=== PATIENT | male | born 1990 | race Two or more races ===

== ENCOUNTER 2016-11-18 09:23 | Emergency (ER) | payer SELFPAY ==
[2016-11-18 09:39] VITALS: BP 123/73; PULSE 80; TEMP 98.5; BMI 41.6
--- NOTE | 2016-11-18 10:21 | PDOC ---
History of Present Illness - General Chief Complaint: Injury Stated Complaint: LEFT RING FINGER LACERATION Time Seen by Provider: 11/18/16 09:35 History Source: Patient Exam Limitations: No Limitations - History of Present Illness Initial Comments: 11/18/16 10:15 26-year-old right hand dominant male with past medical history of asthma, up-to- date on tetanus approximately 2 years ago, presents with laceration along the dorsal side overlying the fourth middle phalanx of the digit. The patient states that he was walking when he caught his finger in a fence and cut him. This occurred prior to his arrival. Denies numbness or weakness. Came into the ED for evaluation. Past History - Past Medical History Allergies/Adverse Reactions: Allergies Allergy/AdvReac Type Severity Reaction Status Date / Time No Known Allergies Allergy Verified 01/28/16 07:39 Home Medications: Ambulatory Orders Albuterol Sulfate Inhaler - [Ventolin HFA Inhaler -] 2 inh PO Q4H PRN #1 inh Asthma: Yes - Immunization History TDAP Vaccination: Yes - Psycho/Social/Smoking Cessation Hx Anxiety: No Suicidal Ideation: No Smoking History: Never smoked Hx Alcohol Use: No Drug/Substance Use Hx: No Substance Use Type: None Review of Systems - Review of Systems Able to Perform ROS?: Yes Comments:: 11/18/16 10:16 GENERAL/CONSTITUTIONAL: No fever, weakness. HEAD, EYES, EARS, NOSE AND THROAT: No change in vision. No ear pain or discharge. No sore throat. CARDIOVASCULAR: No chest pain or shortness of breath. RESPIRATORY: No cough, wheezing, or hemoptysis. GASTROINTESTINAL: No abdominal pain, nausea, vomiting, diarrhea, or decreased PO intolerance. GENITOURINARY: No dysuria, frequency, or change in urination. MUSCULOSKELETAL: No joint or muscle swelling or pain. No neck or back pain. SKIN: +left fourth digit laceration NEUROLOGIC: No headache, vertigo, loss of consciousness, or change in strength/ sensation. ENDOCRINE: No increased thirst. No abnormal weight change. HEMATOLOGIC/LYMPHATIC: No anemia, easy bleeding, or history of blood clots. ALLERGIC/IMMUNOLOGIC: No hives or skin allergy. *Physical Exam - Vital Signs Last Vital Signs Temp Pulse Resp BP Pulse Ox 98.5 F 80 16 123/73 97 11/18/16 09:30 11/18/16 09:30 11/18/16 09:30 11/18/16 09:30 11/18/16 09:30 - Physical Exam Comments: 11/18/16 10:17 GENERAL: Awake, alert, and fully oriented, in no acute distress. HEAD: No signs of trauma EYES: PERRLA, EOMI, sclera anicteric, conjunctiva clear ENT: Auricles normal inspection, hearing grossly normal, nares patent, oropharynx clear without exudates. EXTREMITIES: Normal range of motion, no edema. No clubbing or cyanosis. No cords, erythema, or tenderness LUE: 2+ radial pulse. Sensation intact throughout. 5/5 strength flexion and extension of all digits. NO visible tendon exposure, minimal bleeding. Approximately 2 cm superficial mildly curvilinear laceration along the dorsal surface overlying the left 4th middle phalanx. <2 sec capillary refill. NEUROLOGICAL: Cranial nerves II through XII grossly intact. Normal speech, normal gait SKIN: Warm, Dry, normal turgor, no rashes or lesions noted. Procedures - Laceration/Wound Repair Left 4th digit Wound Length: to 2.5 cm Wound Explored: clean Wound's Depth, Shape: superficial Irrigated w/ Saline: Yes Betadine Prep: Yes Anesthesia: 1% Lidocaine Amount of Anesthetic (ccs): 1 Wound Debrided: minimal Wound Repaired With: Sutures Suture Size/Type: 5:0 Number of Sutures: 4 Layer Closure: No Medical Decision Making - Medical Decision Making 11/18/16 10:18 Vital Signs Temp Pulse Resp BP Pulse Ox 98.5 F 80 16 123/73 97 11/18/16 09:30 11/18/16 09:30 11/18/16 09:30 11/18/16 09:30 11/18/16 09:30 Neurovascularly intact. Full strength in flexion and extension. Wound irrigated and cleansed. Local anesthesia achieved with 1% lidocaine without epinephrine. 4 5-0 nylon interrupted sutures placed with excellent approximation. Scar and wound infection precautions given. Return to ED or PMD in 7 days for suture removal. Hand elevation. NSAIDS for pain control. *DC/Admit/Observation/Transfer Diagnosis at time of Disposition: Laceration - Discharge Dispostion Disposition: HOME Condition at time of disposition: Good Admit: No - Patient Instructions Printed Discharge Instructions: How to Care for a Laceration After Repair Additional Instructions: You have [address] Return to your doctor or to the ER in 7 days. Elevate the hand to minimize swelling. To minimize scarring, minimize sun exposure to the hand while it is healing. If you notice any redness or pus or fever, return to the ER. Take 600 mg ibuprofen every 6 hours as needed for pain.
== END 2016-11-18 10:24 | disposition home or self-care (01) ==
LOC: FER 09:23
PROC: 0HQGXZZ Repair Left Hand Skin, External Approach (ICD-10-PCS; principal; 2016-11-18)
DX: S61.215A Laceration without foreign body of left ring finger without damage to nail, initial encounter (principal); W22.01XA Walked into wall, initial encounter; Y93.K1 Activity, walking an animal; Y92.9 Unspecified place or not applicable; J45.909 Unspecified asthma, uncomplicated
CPT/HCPCS: 99282-25